=== PATIENT | female | born 1960 | race Caucasian/White ===

== ENCOUNTER 2017-06-27 20:39 | Emergency (ER) | payer SELFPAY ==
[~2017-06-27] VITALS: Ht 152.4 cm; Wt 78.9 kg
[2017-06-27 20:46] VITALS: Ht 152.4 cm; Wt 78.9 kg
[2017-06-27 23:25] VITALS: BP 142/64
== END 2017-06-27 23:25 | disposition home or self-care (01) ==
LOC: ED 20:39
DX: K04.7 Periapical abscess without sinus (principal); R03.0 Elevated blood-pressure reading, without diagnosis of hypertension; Z87.19 Personal history of other diseases of the digestive system
CPT/HCPCS: J0696; J2001; Q0162